=== PATIENT | male | born 1955 | race Caucasian/White ===

== ENCOUNTER 2018-10-14 06:21 | Day surgery (SDC) | payer MEDICARE, OTHER ==
[2018-10-14] MEDS ORDERED: PROPOFOL 40 ML (07:39)
[2018-10-14] MEDS ORDERED: ONDANSETRON 4 MG INJ IV (08:00)
[2018-10-14] MEDS ORDERED: PROPOFOL 20 ML (08:38)
== END 2018-10-14 15:14 | disposition home or self-care (01) ==
LOC: GIL 06:21
DX: D12.0 Benign neoplasm of cecum (principal); K64.9 Unspecified hemorrhoids
CPT/HCPCS: 45378; 88305